=== PATIENT | female | born 1965 | race Caucasian/White ===

== ENCOUNTER 2017-10-05 08:39 | Emergency (ER) | payer MEDICAID ==
[~2017-10-05] VITALS: Ht 170.2 cm; Wt 91.4 kg
[2017-10-05 08:42] VITALS: BP 155/102
== END 2017-10-05 10:27 | disposition home or self-care (01) ==
LOC: ED 09:18
DX: J20.9 Acute bronchitis, unspecified (principal); I10 Essential (primary) hypertension
CPT/HCPCS: 71045; 99283

== ENCOUNTER 2017-10-29 12:51 | Emergency (ER) | payer MEDICAID ==
[~2017-10-29] VITALS: Ht 170.2 cm; Wt 93.8 kg
[2017-10-29 12:53] VITALS: BP 141/83
[2017-10-29] MEDS ORDERED: ALBUTEROL/IPRATROPIUM 2.5MG/0.5MG, 3 ML ONE (13:50)
[2017-10-29] MEDS ORDERED: ALBUTEROL/IPRATROPIUM 2.5MG/0.5MG, 3 ML NPPB ONE (14:00)
[2017-10-29 14:10] LABS: RAPID INFLUENZA A Negative (Negative); RAPID INFLUENZA B Negative (Negative)
== END 2017-10-29 14:38 | disposition home or self-care (01) ==
LOC: ED 14:32
DX: J20.9 Acute bronchitis, unspecified (principal); I10 Essential (primary) hypertension
CPT/HCPCS: 71046; 87400; 94640; 99285; J7620